=== PATIENT | female | born 1995 | race African-American/Black ===

== ENCOUNTER 2018-07-13 12:10 | Emergency (ER) | payer MEDICAID ==
[~2018-07-13] VITALS: Ht 157.5 cm; Wt 91.0 kg
[~2018-07-13 12:10] MED LIST: ACYCLOVIR
[2018-07-13 12:51] VITALS: BP 122/76
== END 2018-07-13 16:43 | disposition left against medical advice (07) ==
LOC: ER 12:10
DX: S50.862A Insect bite (nonvenomous) of left forearm, initial encounter (principal); Z53.21 Procedure and treatment not carried out due to patient leaving prior to being seen by health care provider; W57.XXXA Bitten or stung by nonvenomous insect and other nonvenomous arthropods, initial encounter; Y93.89 Activity, other specified; Y92.89 Other specified places as the place of occurrence of the external cause; Y99.8 Other external cause status

== ENCOUNTER 2019-01-23 11:15 | Emergency (ER) | payer SELFPAY ==
[~2019-01-23] VITALS: Ht 157.5 cm; Wt 86.0 kg
[2019-01-23] MEDS ORDERED: IBUPROFEN 800MG TABLET PO ONE (11:45)
[2019-01-23 13:31] VITALS: BP 128/88
== END 2019-01-23 13:32 | disposition home or self-care (01) ==
LOC: ER 11:25
DX: S93.402A Sprain of unspecified ligament of left ankle, initial encounter (principal); S93.602A Unspecified sprain of left foot, initial encounter; W50.2XXA Accidental twist by another person, initial encounter; Y93.89 Activity, other specified; Y92.89 Other specified places as the place of occurrence of the external cause; Y99.8 Other external cause status
CPT/HCPCS: 73610; 73630; 81025; 99283